=== PATIENT | male | born 1975 | race Caucasian/White ===

== ENCOUNTER 2016-08-06 05:44 | Day surgery (SDC) | payer MEDICAID, OTHER ==
[~2016-08-06] VITALS: Ht 190.5 cm; Wt 95.5 kg
[2016-08-06] VITALS (9 sets, daily range): BP systolic 126–147; BP diastolic 66–79; PULSE 57–78; RESP 11–18; Ht 190.5 cm; Wt 95.5 kg
[2016-08-06] MEDS ORDERED: BUPIVACAINE 0.25% (MPF) 30 ML INJ ONE (06:52)
[2016-08-06] MEDS ORDERED: POLYMYXIN/BACITRACIN 1L IRRIG ONE (06:52)
[2016-08-06] MEDS ORDERED: MIDAZOLAM 1 MG/ML 2 ML INJ ONE (06:52)
[2016-08-06] MEDS ORDERED: ROPIVACAINE 0.5 % 30 ML VIAL ONE ×2 (06:52)
[2016-08-06] MEDS ORDERED: FENTAnyl 50 MCG/ML VIAL ONE (06:52)
[2016-08-06] MEDS ORDERED: NEOMYC/POLYMYX/BACIT 30 GM OINT ONE (06:52)
--- NOTE | 2016-08-06 07:14 | HPN ---
Date/Time of Note Date/Time of Note DATE: 08/06/16 TIME: 07:14 Interval H&P Admission Note Pt. seen H&P reviewed: No system changes UMU LEA MD Aug 06, 2016 07:14
[2016-08-06] MEDS ORDERED: PROPOFOL 40 ML ONE (07:29)
[2016-08-06] MEDS ORDERED: CEFAZOLIN 1 GM INJ ONE ×2 (07:29→10:33)
[2016-08-06] MEDS ORDERED: SUCCINYLCHOLINE CHLORIDE 100 MG/5 ML SYG IV ONE (07:29)
[2016-08-06] MEDS ORDERED: LIDOCAINE 2% (SDV) 5 ML INJ ONE (07:29)
[2016-08-06] MEDS ORDERED: ROCURONIUM 50 MG INJ ONE (07:29)
[2016-08-06] MEDS ORDERED: DEXAMETHASONE 4 MG/ML 1 ML INJ ONE (07:34)
[2016-08-06] MEDS ORDERED: METOCLOPRAMIDE 10 MG INJ ONE (07:34)
[2016-08-06] MEDS ORDERED: FAMOTIDINE 20 MG INJ ONE (07:34)
[2016-08-06] MEDS ORDERED: ONDANSETRON 4 MG INJ ONE (07:34)
[2016-08-06 07:36] LABS: INR 0.92; PROTIME 12.4 Sec (12.2-14.2)
[2016-08-06 07:37] LABS: PARTIAL THROMBOPLASTIN TIME 27.5 Sec (25.0-35.0)
[2016-08-06] MEDS ORDERED: EPHEDrine SULFATE 50 MG/5 ML SYG ONE (07:40)
[2016-08-06] MEDS ORDERED: DEXT10TA9 PO (08:01)
[2016-08-06] MEDS ORDERED: HYDROmorphONE 2 MG/ML SYG ONE (11:03)
[2016-08-06] MEDS ORDERED: morphine 2 MG INJ IV PRN (12:00)
[2016-08-06] MEDS ORDERED: morphine 10 MG INJ IV PRN (12:00)
[2016-08-06] MEDS ORDERED: DIPHENHYDRAMINE 50 MG INJ IV PRN (12:00)
[2016-08-06] MEDS ORDERED: HYDROmorphONE (0.2 MG/ML) 10ML SYG IV PRN ×3 (12:00)
[2016-08-06] MEDS ORDERED: MEPERIDINE 25 MG INJ IV PRN (12:00)
[2016-08-06] MEDS ORDERED: PROCHLORPERAZINE 10 MG INJ IV PRN (12:00)
[2016-08-06] MEDS ORDERED: FENTAnyl 50 MCG/ML VIAL IV PRN ×3 (12:00)
[2016-08-06] MEDS ORDERED: ONDANSETRON 4 MG INJ IV PRN (12:00)
--- NOTE | 2016-08-06 23:28 | OPR ---
Date/Time of Note Date/Time of Note DATE: 08/06/16 TIME: 23:28 Operative Report Free Text/Dictation Date of Surgery: 08/06/2016 Attending surgeon: Umu Lea MD Car [place]pper Surgeon: Al Lea MD PREOPERATIVE DIAGNOSES: Right knee anterior cruciate ligament tear re-rupture, medial meniscal tear. POSTOPERATIVE DIAGNOSES: Right knee anterior cruciate ligament re-tear, medial and lateral meniscal tear. PROCEDURE: 1. Right knee arthroscopy with revision anterior cruciate ligament reconstruction with Achilles tendon allograft. Fixed with 9 x 30 Mortensen and Nephew Softsilk screws as well as 10 x 30 Mortensen and nephew bio sure RG screw backed up fast lock staple 2. Right knee medial and lateral meniscus partial meniscectomy. 3. Right knee chondroplasty 4. Examination under anesthesia. Findings: 1. grade 3 chondromalacia of the trochlear 2. 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 Without the qualified executive administrative assistant being present, it would have been an extended operative procedure and made the procedure technically more difficult to perform. INDICATIONS: The patient is a 41-year-old male who sustained a re-rupture of his ACL recently. He had an original ACL surgery performed approximately 10 years ago. An MRI confirmed ACL tear and medial and lateral meniscal tear. The patient was informed of the risks, benefits, and alternatives to surgery as well as discussion with the patient and the family. The risks include but are not limited to infection, bleeding, damage to vessels and nerves, loss of motion , continued pain, retear of the meniscus, retear of the ACL, deep vein thrombosis, and complications due to anesthesia including nerve injury, myocardial infarction, stroke, . The patient stated understanding of the nature of the surgical procedure and gave written and verbal consent to proceed as well as did the family. PROCEDURE IN DETAIL: The patient was brought back to the operating room and placed supine on the operating table. General anesthesia was induced and a fascia-iliacus block was performed. Prior to bringing him to the operating room , the correct operative extremity was marked in the preoperative holding area and confirmed with the patient, family, and consent. Examination of the right knee under anesthesia revealed a full range of motion. Anterior drawer and Ramón were 2+ and pivot shift was 1+. There was no varus-valgus instability. The right lower extremity was the prepped and draped in normal sterile fashion. A tourniquet was placed proximal on the thigh over a bias stockinette preoperatively. A standard anterior lateral parapatellar stab wound was created. The knee was entered with a blunt tipped obturator followed by a 30 degree video arthroscope. The anterior medial portal was established under arthroscopic control. A routine arthroscopic survey was performed. The suprapatellar pouch was unremarkable. The undersurface of patella was well preserved. The patella appeared to track centrally within the trochlear groove. The medial and lateral gutters were inspected and there were no loose bodies seen. There was no hypertrophic plica. The popliteal hiatus was entered and was unremarkable. 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 Attention was then turned to the intercondylar notch where an anterior cruciate ligament tear was identified with an empty lateral wall sign. Posteromedially, there was no evidence of any loose bodies seen. The posterior cruciate ligament was visualized and appeared to be intact. The medial compartment was entered. The articular surface of the medial femoral condyle and medial patella were well visualized with evidence of a grade 2 chondromalacial injury to the weightbearing surface of the medial femoral condyle. The medial meniscus was torn at the posterior horn extending to the mid portion. The medial meniscus was torn posteriorly and flipped into the posterior aspect of the knee at the white-white zone. A motorized shaver was used to gently abrade the periphery and obtain improved contour of the meniscus at that time to avoid the meniscus from further flipping up. Using both curved and straight baskets at the tear, the meniscus was saucerized from the posterior horn as well as contoured to the mid zone. The shaver smoothed and contoured the edges to a stable rim. Attention was then turned back to the lateral compartment where the lateral meniscal tear was noted extending from the posterior horn to the mid body. A motorized shaver was used to gently abrade the periphery and obtain improved contour of the meniscus at that time to avoid the meniscus from further flipping up. Using both curved and straight baskets at the tear, the meniscus was saucerized from the posterior horn as well as contoured to the mid zone. The shaver smoothed and contoured the edges to a stable rim. Attention was then turned to reconstruction of the anterior cruciate ligament. The remainder of the torn ACL stump was debrided adequately and there is evidence of notch hyperplasia which was debrided with a everardo to do a complete notchplasty. The posterior wall was exposed adequately. And the original graft was seen in a slightly anterior position where it was ruptured. The tibial graft site was also debrided thoroughly. The Achilles allograft was then prepped and the back table. The graft was contoured to approximately 10 mm. This was verified with the 10 mm sizer and then placed on the tensioner to keep tension on the graft. There were 3 perpendicularly directed drill tunnels with a K wire on the bone plug side and # 2 PDS was placed on this area. The tibial side of the ACL was then repaired with a #3 cotton Dacron tape. Simultaneously, the remaining stump of anterior cruciate ligament was removed. A notchplasty was gently performed in a small fashion using a shaver, also using a curette until the over the top position was identified. The drill guide was then inserted after measuring the appropriate length. We used 2 rules , the N + 7 rule and the calculation of the tibial length from drilling the intraarticular and femoral hole length, to determine the appropriate tibial tunnel length. The tibial guidepin was inserted just anterior to the posterior cruciate and just medial in the tibial spine. Extending the knee showed good angulation of the pin. The hole was enlarged to 10 mm and then chamfered. Using a outside in technique and the knee Vector guide a femoral tunnel was identified incision was made over the lateral border of the knee and incision was taken down through the IT band. The Beath pin was then brought into the knee from the lateral aspect of the lateral femoral condyle and then the tunnel was created using a 6 then 8 then 10 mm drill bit. Using a [place] graft smoother was brought into the knee from the lateral aspect and then used to smooth down the canal over the femoral and tibial canal. The graft sutures were then placed through the slot in the graft smoother and were pulled from the femoral side out to the tibia. The sutures were clamped on the femur and the graft was brought into the femoral hole with cancellous bone on the anterior portion of the femoral hole. We had previously made martinez on the graft and knew exactly where the bone ended. The lateral cortex was then flushed with the bone plug which measured approximately 27.1 mm and the entire length of the graft measured approximately 120 mm. Using a nitinol wire that was placed in the lateral aspect of the lateral femoral condyle. This 10 x 30 mm Mortensen [employer] Nephew Softsilk screw was then inserted on the cancellous portion of the femur with the knee flexed to 90 degrees from the lateral cortex of the lateral femoral condyle. Excellent fixation was obtained. Tension was then placed on the graft and the knee was flexed and extended 20 times to get remaining creep out of the graft. The knee was bent 10 degrees and the posterior drawer was applied while the graft was tensioned. A Fast-Fix staple was then placed with the #3 Dacron tape wrapped around the staple to achieve formal and final tension of the graft The guidepin was inserted and a 10 x 30 mm Mortensen and Nephew biosure RG screw was then inserted. Excellent fixation was obtained; The knee had full motion. The arthroscope was inserted again and the ACL showed excellent fixation. There was no graft impingement and the graft was stable in all planes. The wounds were irrigated clear. Deep tissues were closed with 0 Vicryl. The subcutaneous tissues were then closed with a 2-0 Vicryl undyed and 3-0 Monocryl and the skin with a 4-0 Monocryl stitch. Steri-Strips were applied. A compression dressing was then applied as well as ice pack and a hinged knee brace locked in full extension The patient tolerated the procedure well and was taken to the recovery room in stable condition. At the end of the case, all sponge and needle counts were correct. He can begin partial toe-touch weight bearing as tolerated tomorrow with the knee brace locked in extension. He will also be taking aspirin 325 mg by mouth for the next 30 days. Modifier 22 note: This case should be coded with a modifier 22 note is this was a revision ACL case thus requiring extensive amount of time for previous graft removal and a change in the anatomy due to the previous surgery. The case required extensive amount of time for revision of the previous surgery and that should be billed accordingly. Procedure Date: Aug 06, 2016 UMU LEA MD Aug 06, 2016 23:28
== END 2016-08-06 13:05 | disposition home or self-care (01) ==
LOC: SDS 05:44
PROVIDERS: ATTEND Orthopaedic Surgery
DX: M23.251 Derangement of posterior horn of lateral meniscus due to old tear or injury, right knee (principal); M23.221 Derangement of posterior horn of medial meniscus due to old tear or injury, right knee; S83.511D Sprain of anterior cruciate ligament of right knee, subsequent encounter; X58.XXXD Exposure to other specified factors, subsequent encounter
CPT/HCPCS: 29880; 29888; 85610; 85730; C1713; C1762; J0330; J0690; J1100; J1170; J2250; J2405; J2765; J2795; J3010; Z7512; Z7610